=== PATIENT | female | born 1970 | race African-American/Black ===

== ENCOUNTER 2017-06-11 16:37 | Emergency (ER) | payer SELFPAY ==
[2017-06-11] MEDS ORDERED: Acetaminophen 500 MG TAB ONE (18:03)
--- NOTE | 2017-06-11 20:18 | RAD ---
RADIOGRAPH PELVIS 1 VIEW: 06/11/17 HISTORY: 46-year-old female with severe left buttock pain after fall. COMPARISON: None. FINDINGS: There is a broad-based 3 x 2 cm osseous excrescence protruding inferiorly from the inferior aspect of the left sacroiliac joint. The bilateral SI joint spaces are maintained. No evidence of acute fractu re or dislocation. There are enthesophytes at the lateral edges of the bilateral iliac wings, and at the lateral aspects of the bilateral acetabular roofs. Bilateral hip joint spaces are maintained. Fem oral head contours are maintained. No subcapital osteophytes. IMPRESSION: 1. No fracture identified. 2. Multiple enthesophytes, raising the possibility of DISH (diffuse idiopathic skeletal hyperost osis). 3. Moderately large osseous excrescence protruding inferiorly from the region of the left sacroi liac joint, of uncertain etiology. One possibility is exostosis (osteochondroma). POS: [facility]
== END 2017-06-11 18:45 | disposition home or self-care (01) ==
LOC: ERS 16:37
DX: S30.0XXA Contusion of lower back and pelvis, initial encounter (principal); F32.9 Major depressive disorder, single episode, unspecified; I10 Essential (primary) hypertension; Z79.899 Other long term (current) drug therapy; W01.0XXA Fall on same level from slipping, tripping and stumbling without subsequent striking against object, initial encounter
CPT/HCPCS: 72170

== ENCOUNTER 2019-05-23 08:04 | Outpatient (CLI) | payer BC ==
--- NOTE | 2019-05-23 08:53 | MMO ---
Bilateral MAMMO Bilat Screen [facility]. CLINICAL HISTORY: Patient is 48 years old and is seen for screening. The patient has no family history of breast cancer. The patient has no personal history of cancer. VIEWS: The views performed were: bilateral craniocaudal; bilateral craniocaudal with tomosynthesis; bilateral mediolateral oblique; and bilateral mediolateral oblique with tomosynthesis. FILMS COMPARED: The present examination has been compared to prior imaging studies performed at [facility] on 01/01/2007 and 01/13/2012. This study has been interpreted with the assistance of computer-aided detection. MAMMOGRAM FINDINGS: The breasts are almost entirely fat. There are no suspicious masses, suspicious calcifications, or new areas of architectural distortion. IMPRESSION: THERE IS NO MAMMOGRAPHIC EVIDENCE OF MALIGNANCY. A ROUTINE FOLLOW-UP MAMMOGRAM IN 1 YEAR IS RECOMMENDED. THE RESULTS OF THIS EXAM WERE SENT TO THE PATIENT. ACR BI-RADS Category 1 - Negative MAMMOGRAPHY NOTE: 1. A negative mammogram report should not delay a biopsy if a dominant of clinically suspicious mass is present. 2. Approximately 10% to 15% of breast cancers are not detected by mammography. 3. Adenosis and dense breasts may obscure an underlying neoplasm. Reported by: BOAZ SOW MD Electonically Signed: [id number]
== END 2019-05-23 08:05 | disposition home or self-care (01) ==
LOC: BICMAMMO 08:04
PROVIDERS: ATTEND Physician Assistant
DX: Z12.31 Encounter for screening mammogram for malignant neoplasm of breast (principal)
CPT/HCPCS: 77063; 77067